=== PATIENT | male | born 1955 | race Asian ===

== ENCOUNTER 2017-04-17 08:06 | Day surgery (SDC) | payer OTHER ==
[~2017-04-17] VITALS: Ht 172.7 cm; Wt 62.4 kg
[2017-04-17 09:24] VITALS: Ht 172.7 cm; Wt 62.4 kg
[2017-04-17] MEDS ORDERED: LEVO75TA5 PO (09:37)
[2017-04-17] MEDS ORDERED: AMLO2.5T78 PO (09:37)
[2017-04-17 09:53] VITALS: BP 195/91; PULSE 72; RESP 12
[2017-04-17] MEDS ORDERED: MIDAZOLAM 1 MG/ML 2 ML INJ ONE ×2 (10:24)
[2017-04-17] MEDS ORDERED: FENTAnyl 50 MCG/ML VIAL ONE (10:24)
--- NOTE | 2017-04-17 10:28 | OPPN ---
Date/Time of Note Date/Time of Note DATE: 04/17/17 TIME: 10:25 Operative Report Preoperative Diagnosis Abdominal pain Screening Postoperative Diagnosis Hiatal hernia and gastroesophageal reflux disease Gastritis with erosions Sigmoid polyp was removed with biopsy forceps Internal hemorrhoids Operation/Procedure Performed Esophagogastroduodenoscopy and biopsy Colonoscopy and biopsy Provider: CORINNA CHRISTINE MD Anesthesia Type: moderate sedation Estimated blood loss: none Transfusion Required: no Specimens Gastric mucosal biopsy Sigmoid colon polyp biopsy Grafts/Implants: none Complications: no CORINNA CHRISTINE MD Apr 17, 2017 10:28
[2017-04-17 10:57] VITALS: BP 175/97; PULSE 66; RESP 12
--- NOTE | 2017-04-17 12:09 | GILP ---
DATE OF PROCEDURE: 04/17/2017 PROCEDURE PERFORMED: 1. Esophagogastroduodenoscopy with biopsy. 2. Colonoscopy and biopsy. SURGEON: Rhys Sahu MD PREOPERATIVE DIAGNOSIS: 1. Abdominal pain. 2. Screening colonoscopy. POSTOPERATIVE DIAGNOSES: 1. Hiatal hernia. 2. Gastroesophageal reflux disease. 3. Gastritis with erosions. 4. Gastric mucosal biopsies were taken for Helicobacter pylori test. 5. Colonoscopy all the way to the cecum. 6. Small sigmoid colon polyp was removed using biopsy forceps. 7. Internal hemorrhoids. INDICATION: Mr. Hon Glasgow is a 61-year-old male patient who had upper and lower abdominal pain not responding to therapy. He also needed a screening colonoscopy. The procedures and possible complications were well explained to the patient. He understood and consented to the procedures. DESCRIPTION OF PROCEDURE: Under influence of fentanyl and Versed, the gastroscope was carefully introduced into the esophagus. Under direct vision, it was advanced to the stomach, into the pylorus, into the duodenal bulb, and descending duodenum. Findings: Esophagus: The patient had a hiatal hernia and gastroesophageal reflux disease. Stomach: He had gastritis with erosions. Gastric mucosal biopsies were taken for H pylori test. Duodenum was normal. The colonoscope was carefully introduced in the rectum and under direct vision, it was advanced all the way to the cecum. Findings: The patient had a small sigmoid colon polyp and it was removed using biopsy forceps. He had internal hemorrhoids. He tolerated the procedures very well. There was no complication from the procedures. At the end of procedure, he was awake with stable vital signs and he was discharged home in care of his family. IMPRESSION: Please see postop diagnoses. PLAN: 1. Pantoprazole 40 mg p.o. q.a.m. 2. Await histopathology reports. 3. Next screening colonoscopy in 10 years. Dictated By: MD LILY Velásquez/lucho/sharri /Document#: [id number]
--- NOTE | 2017-04-22 11:57 | CONS ---
DATE OF ADMISSION: DATE OF CONSULTATION: 04/14/[address] Glasgow, I thank you very much for this kind referral. Mr. Hon Glasgow is a 61-year-old male patient who has been referred to me for further evaluation of abdominal pain. The patient states he has got pain in the upper part as well as the lower part of the abdomen. There is no history of peptic ulcer disease. He is not taking any nonsteroidal anti-inflammatory agents. His appetite has been good, and he is not losing any weight. There is no history of gallstones or liver disease. The patient also complains of lower abdominal pain and change in the bowel habits. PAST MEDICAL HISTORY: No past history of colon neoplasm. The patient never had a screening colonoscopy. He is hypertensive, not diabetic. No heart disease or lung problem. No kidney disease. SOCIAL HISTORY: Nonsmoker. No alcohol abuse. FAMILY HISTORY: No family history of gastrointestinal tract neoplasm. ALLERGIES: NO DRUG ALLERGIES. MEDICATION: Medicine for high blood pressure. PHYSICAL EXAMINATION: VITALS: He is 5 feet 8 inches tall, weighs 145 pounds. Normal heart sounds. LUNGS: Clear. ABDOMEN: Soft. No masses. Normal bowel sounds. Normal neurological exam. IMPRESSION: 1. Upper abdominal pain, not responding to therapy. 2. Lower abdominal pain and change in the bowel habits. 3. The patient never had a screening colonoscopy. 4. Hypertension. PLAN: Endoscopy and colonoscopy for further evaluation. The procedures and possible complications were well explained to the patient. He understands and consents to the procedures. I thank you once again. With warmest personal regards, Patient Name: Hon Glasgow Dictated By: MD LILY Velásquez/lucho/mitzi /Document#: [id number]
== END 2017-04-17 12:47 | disposition home or self-care (01) ==
LOC: GIL 08:06
PROVIDERS: ATTEND Internal Medicine Gastroenterology
DX: Z12.11 Encounter for screening for malignant neoplasm of colon (principal); D12.5 Benign neoplasm of sigmoid colon; K44.9 Diaphragmatic hernia without obstruction or gangrene; K21.9 Gastro-esophageal reflux disease without esophagitis; K29.60 Other gastritis without bleeding; K64.8 Other hemorrhoids; I10 Essential (primary) hypertension
CPT/HCPCS: 43239; 45380; 87081; 88305; J2250; J3010; Z7610